=== PATIENT | male | born 2000 | race Caucasian/White ===

== ENCOUNTER 2023-05-27 00:54 | Emergency (ER) | payer OTHER, SELFPAY ==
[2023-05-27 01:04] VITALS: BP 155/105; PULSE 67; RESP 16; TEMP 36.6; O2SAT 97
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
== END 2023-05-27 01:55 | disposition home or self-care (01) ==
PROVIDERS: Emergency Provider Family Medicine; PCP Family Medicine
DX: T23.292A Burn of second degree of multiple sites of left wrist and hand, initial encounter (principal); T23.291A Burn of second degree of multiple sites of right wrist and hand, initial encounter; W93.2XXA Prolonged exposure in deep freeze unit or refrigerator, initial encounter
CPT/HCPCS: 16020; 99283; 99284